=== PATIENT | male | born 1940 | race Caucasian/White ===

== ENCOUNTER → 2018-01-07 | Outpatient (CLI) | payer MEDICARE ==
--- NOTE | 2018-01-07 14:02 | XCELERA REPORT ---
[address] [address] Lower Extremity Venous Evaluation Procedure: A bilateral duplex scan of the lower extremity veins was performed. The evaluation included responses to compression and other maneuvers with patient in the supine and standing positions to assess venous insufficiency. Right Sided Venous Evaluation Deep venous system evaluatiion shows patent veins with no obstruction or significant reflux identified. Sapheno Femoral junction: no reflux. Femoral vein reflux: no reflux. Greater Saphenous vein, Proximal thigh: reflux: no reflux. Greater Saphenous vein, Distal thigh: reflux: no reflux. Greater Saphenous vein, Proximal below knee: reflux: no reflux. No significant Perforators identified. Left Sided Venous Evaluation Deep venous system evaluatiion shows patent veins with no obstruction or significant reflux identified. Sapheno Femoral junction: no reflux. Femoral vein reflux: no reflux. Greater Saphenous vein, Proximal thigh: reflux: no reflux. Greater Saphenous vein, Distal thigh: reflux: no reflux. Greater Saphenous vein, Proximal below knee: reflux: no reflux. No significant Perforators identified. Interpretation Summary No duplex evidence of DVT or obstruction in the bilateral lower extremities. No significant deep or superficial reflux noted. Name: BARBARA CERDA Age: 77 yrs Gender: Male : 1940 Patient Status: Outpatient Patient Location: Study Date: 01/07/2018 11:21 AM Reason For Study: ULCER Ordering Physician: CARIN RAMIRES Performed By: Yao Fregoso : CARIN RAMIRES > Milton Galvan
== END ==
LOC: SP 11:03
PROVIDERS: ATTEND Preventive Medicine Undersea and Hyperbaric Medicine
DX: L97.512 Non-pressure chronic ulcer of other part of right foot with fat layer exposed (principal)
CPT/HCPCS: 93970